=== PATIENT | male | born 1955 | race Caucasian/White ===

== ENCOUNTER 2024-04-06 13:28 | Observation (INO) ==
--- NOTE | 2024-04-06 14:17 | Emergency Department Note ---
Impression & Plan Dementia, Hyperglycemia, Leukocytosis, Unable to care for self ED Provider Note NAME: ZANDER FERRER AGE: 68 SEX: M : 1955 ARRIVES VIA: Walk-In INFORMANT: [family, friends] ED PROVIDER(S): [Sanya Woodard MD] CHIEF COMPLAINT: Confusion, needs placement HISTORY OF PRESENT ILLNESS: The patient is a 68-year-old male who has dementia. He has a history of diabetes and [place]. He wanders and needs 24/7 care. He is by report nonverbal. He was being cared for by his however, she yesterday. The patient is here today at the advice of the [facility] physician group as he will need hospitalized today for eventual alf placement. There is no placement available today. He is not safe to be by himself. Family is not able to care for him at the level required. The patient is not from the area. He is from the [facility]. He was brought today to [place] by his family as his most immediate family lives in this area. The patient has not been sick or ill, no cough or congestion. He has been in baseline health. He wanders but has never been aggressive/violent. PMHx/PSHx/Social Hx: See Below PHYSICAL EXAM: GENERAL: Patient is in no acute distress. HEENT: No acute trauma, normocephalic atraumatic, mucous membranes moist, no nasal congestion. NECK: No stridor, no adenopathy, no meningismus, trachea is midline. LUNGS: Clear to auscultation bilaterally, no wheeze, no rhonchi, breath sounds equal. HEART: Without murmurs gallops or rubs, regular rate and rhythm. ABDOMEN: Soft, nontender, no peritonitis. EXTREMITIES: No cyanosis, full range of motion of all the joints without pain or difficulty. NEUROLOGIC: Moves all extremities, ambulates without difficulty. Cooperative but seen to wander when left to sit alone. SKIN: No jaundice, no diaphoresis. DIFFERENTIAL DIAGNOSIS: Dehydration, dementia, electrolyte imbalance, intracranial bleeding, anemia, among others. EMERGENCY DEPARTMENT PROCEDURES: MEDICAL DECISION MAKING: There is a mild leukocytosis, this could be consistent with infection or just the stress of his current situation. There was a normal hemoglobin and platelet count. Sodium slightly low at 133. No renal failure. Initial glucose was reported at 357, a repeat was done here about an hour later showing a decrease to 284. There was no concerning liver enzyme elevation. The patient appeared to be in a euthyroid state. Aspirin, Tylenol and alcohol levels were undetectable. COVID test is currently pending. Urinalysis is pending. Urine tox is pending. A brain CT was ordered however, this result is pending. The patient was given a 500 cc saline bolus during his stay. He had been ordered for a dose of IV insulin however, when the BSG showed a value of 284, the insulin dose was canceled. The patient has stable vital signs. He is not febrile. He presents today with severe dementia and is need of alf placement. No beds are available today thus he will be hospitalized on the medicine service. We can trend his sugar, we can make sure he is hydrated. The remaining tests ordered can be performed during his hospital stay. I did speak with case management, I spoke with the family. The on-call hospitalist was consulted. Prior/Outside records/notes reviewed: None ECG per my interpretation: Indication was weakness. The ECG shows what appears to be a sinus rhythm with baseline artifact. The rate is 81. There is no acute ST elevation, no PVCs. There is some nonspecific ST change. QTc is 425. Imaging/x-ray results per my interpretation: Chronic Medical/Social conditions affecting care: History of severe dementia requiring 24/7 care. Care/Management discussed with: Case management, the on-call hospitalist. Level of care consideration(s): After review of the information above and other included data: --I believe the patient requires escalation of care to admission DISPOSITION: Admission Past Med/Surg History Problem List (Updated 04/06/24 @ 15:36 by Sanya Woodard MD) Leukocytosis (Acute) Hyperglycemia (Acute) Dementia (Acute) Unable to care for self (Acute) Medical History CAD (coronary artery disease) Vitamin D deficiency Pick's disease HTN (hypertension) T2DM (type 2 diabetes mellitus) Surgical History (Updated 04/06/24 @ 14:58 by Alexandra Bush PA-C) History of coronary artery stent placement Family History (Updated 04/06/24 @ 14:46 by ETELVINA AndersenC) Other Family history non-contributory Social History Smoking Status: Never smoker Hx Alcohol Use: No Hx Substance Use: No Preferred Language: [place]guill[place] Communication Ability: Impaired Communication Ability Comment: Pt nonverbal in setting of dementia marital status: / Feels Safe at Home: Yes Home Meds Home Medications Medication Instructions Recorded Confirmed aspirin 81 mg tablet,delayed 81 mg PO DAILY 04/06/24 04/06/24 release atorvastatin 40 mg tablet 40 mg PO HS 04/06/24 04/06/24 coenzyme Q10 100 mg capsule (Co 100 mg PO DAILY 04/06/24 04/06/24 Q-10) insulin glargine 100 unit/mL (3 15 unit subcut BID 04/06/24 04/06/24 mL) subcutaneous pen (Lantus Solostar U-100 Insulin) olmesartan 20 mg tablet 20 mg PO DAILY 04/06/24 04/06/24 omeprazole 40 mg capsule,delayed 40 mg PO DAILY 04/06/24 04/06/24 release risperidone 0.25 mg disintegrating 0.25 mg PO TID 04/06/24 04/06/24 tablet sitagliptin phosphate 100 mg 100 mg PO DAILY 04/06/24 04/06/24 tablet (Januvia) Results & Data (ED) Vital Signs Vital Signs - 24 hr 04/06/24 13:29 04/06/24 13:29 Temperature 36.6 C Temperature Source Temporal Artery Scan Pulse Rate 84 Respiratory Rate 18 18 Blood Pressure 124/68 Blood Pressure Mean 86 Pulse Oximetry 92 Sepsis Recent Fever Within 48 Hours No Sepsis New/Unexplained Change in Mental Status N/A Sepsis Action Taken by Nursing No Action Required Home Medications Current Medication List: was personally reviewed by me Laboratory Data Attestation: I reviewed the patient's lab results. 04/06/24 14:39 04/06/24 14:39 Lab Results 04/06/24 04/06/24 Range/Units 14:39 15:25 WBC 12.03 H (4.8-10.8) K/ul RBC 5.33 (4.70-6.10) M/uL Hgb 16.6 (14.0-18.0) g/dl Hct 49.3 (42.0-52.0) % MCV 92.5 (80.0-100.0) fL MCH 31.1 (25.0-34.0) pg MCHC 33.7 (32.0-36.0) g/dL RDW Std Deviation 41.0 (36.4-46.3) fL RDW Coeff of Tommy 12.1 (11.5-14.5) % Plt Count 273 (130-400) K/uL MPV 10.1 (9.4-12.4) fL Immature Gran % (Auto) 0.4 % Neut % (Auto) 67.8 % Lymph % (Auto) 18.4 % Hernando % (Auto) 9.6 % Eos % (Auto) 3.2 % Baso % (Auto) 0.6 % Neut # (Auto) 8.17 H (1.40-6.50) K/uL Lymph # (Auto) 2.21 (1.20-3.40) K/uL Hernando # (Auto) 1.15 H (0.11-0.59) K/uL Eos # (Auto) 0.38 (0.00-0.50) K/uL Baso # (Auto) 0.07 (0.00-0.20) K/uL Immature Gran # (Auto) 0.05 (0.01-0.20) K/uL Sodium 133 L (136-145) mmol/L Potassium 4.3 (3.5-5.1) mmol/L Chloride 99 (98-107) mmol/L Carbon Dioxide 28 (21-32) mmol/L Anion Gap 6 (3-11) BUN 9 (6-23) mg/dl Creatinine 0.70 (0.6-1.4) mg/dl Est Cr Clr Drug Dosing 102.3 ml/min Est GFR ( Amer) 111.6 ml/min Est GFR (Non-Af Amer) 96.3 ml/min BUN/Creatinine Ratio 12.9 (10-20) Glucose 357 H* (70-99(Fasting)) mg/dl POC Glucose 284 H (70-99) mg/dl Calcium 9.2 (8.6-10.3) mg/dl Total Bilirubin 1.0 (0.2-1.0) mg/dl AST 16 (13-39) U/L ALT 21 (7-52) U/L Alkaline Phosphatase 81 (34-104) U/L Total Protein 7.5 (6.0-8.3) gm/dl Albumin 4.2 (3.4-5.0) gm/dl Globulin 3.3 (2.5-4.0) gm/dl Albumin/Globulin Ratio 1.3 (0.9-2) TSH 1.090 (0.300-4.500) uIu/ml Salicylates < 3.0 L (3.0-30) mg/dl Acetaminophen < 3 L (10-30) ug/ml Ethyl Alcohol mg/dL < 10.0 (<10.0) mg/dl Administered Medications Discontinued Medications Sodium Chloride (Nss) 500 mls @ 999 mls/hr IV .Q31M ELOINA Stop: 04/06/24 14:30 Last Admin: 04/06/24 15:02 Dose: 999 mls/hr Documented By: TANNER Discharge Plan Visit Data Chief Complaint: Illness Stated Complaint: REFERRED TO DR WOODARD - PLACEMENT FOR RESPITE ED Provider: Sanya Woodard Discharge Problem: Dementia, Hyperglycemia, Leukocytosis, Unable to care for self Patient Disposition: Admitted As Inpatient Condition: Fair Forms Stand Alone Forms: My [facility] Prescriptions Prescriptions: No Action Januvia 100 mg Tablet 100 mg PO DAILY insulin glargine [Lantus Solostar U-100 Insulin] 100 unit/mL (3 mL) Insulin Pen 15 unit SUBCUT BID risperidone 0.25 mg Tablet,Disintegrating 0.25 mg PO TID atorvastatin 40 mg Tablet 40 mg PO HS olmesartan 20 mg Tablet 20 mg PO DAILY aspirin [Aspir-81] 81 mg Tablet,Delayed Release (Dr/Ec) 81 mg PO DAILY omeprazole 40 mg Capsule,Delayed Release(Dr/Ec) 40 mg PO DAILY coenzyme Q10 [Co Q-10] 100 mg Capsule 100 mg PO DAILY Referrals Referrals: PCP,NO [Physician] - Discharge Problem: Dementia Qualifiers: Dementia type: Pick's disease Dementia severity: severe Dementia behavioral or psychological symptom: with other behavioral disturbance Qualified Code(s): G 31.01 - Pick's disease Leukocytosis Qualifiers: Leukocytosis type: unspecified Qualified Code(s): D72.829 - Elevated white blood cell count, unspecified
[2024-04-06 14:51] LABS: Basophils # (auto) 0.07 K/uL (0.00-0.20); Basophils % (auto) 0.6 %; Eosinophils # (auto) 0.38 K/uL (0.00-0.50); Eosinophils % (auto) 3.2 %; Hematocrit (blood only) 49.3 % (42.0-52.0); Hemoglobin 16.6 g/dl (14.0-18.0); Immature Granulocytes # (auto) 0.05 K/uL (0.01-0.20); Immature Granulocytes % (auto) 0.4 %; Lymphocytes # (auto) 2.21 K/uL (1.20-3.40); Lymphocytes % (auto) 18.4 %; Mean Corpuscular Hemoglobin 31.1 pg (25.0-34.0); Mean Corpuscular Hgb Conc 33.7 g/dL (32.0-36.0); Mean Corpuscular Volume 92.5 fL (80.0-100.0); Mean Platelet Volume 10.1 fL (9.4-12.4); Monocytes # (auto) 1.15 K/uL (0.11-0.59); Monocytes % (auto) 9.6 %; Neutrophils # (auto) 8.17 K/uL (1.40-6.50); Neutrophils % (auto) 67.8 %; Platelet Count 273 K/uL (130-400); RDW Coefficient of Variation 12.1 % (11.5-14.5); Red Blood Count 5.33 M/uL (4.70-6.10); White Blood Count 12.03 K/ul (4.8-10.8)
[2024-04-06] MEDS: SODIUM CHLORIDE 0.9% 500 ML IV SCH (15:02)
--- NOTE | 2024-04-06 15:06 | History & Physical Report ---
Date of Service April 06, 2024 Assessment & Plan (1) Pick's disease: (2) T2DM (type 2 diabetes mellitus): (3) HTN (hypertension): (4) Unable to care for self: Plan This is a 68 yr old M who has a significant PMH of Picks disease and advanced dementia dx in 2009 now nonverbal for last 3 years, Uncontrolled T2DM, HTN, HLD and vitamin d deficiency who presents to ED due to need for fpc placement. Pt formally of [facility]. Was residing with his who was his main bunk house worker for many years. Pts abruptly on 04/05. His Son in law and Daughter live in [place], [place] and he is being admitted for chcf placement as family unable to care for him at home. Picks Disease and advanced dementia, dx 2009, nonverbal for last 3 years Unable to care for self at home - needs extermination supervisor placement admit to med/surg one to one as pt very mobile, flight risk routine lab worked ordered and obtained in ED, CT head T2DM, uncontrolled a1c in october was 9.5 lantus/novolg per protocol consult glycemic pharmacy for assistance with control Goal a1c ~ 8 HTN: chronic, stable, continue ARB HLD: chronic, stable, continue statin, coq10 - last lipid panel in October total chol 113, HDL 35, trig 141, LDL 56 CAD/Hx of [place] - continue ARB, statin, ASA DVT ppx: Pt ambulatory, encourage ambulation, given advance dementia chemical ppx not indicated DNR/DNI PCP: Anamaria Ewing - [facility] - records were reviewed, he will need to establish with provider in area Dispo: pt to need dementia unit placement, flight risk - recommend to limit medical interventions as much as possible as pt will be noncompliant i.e.pulling of IVs, injections, etc Pt was seen and examined in collaboration with Dr. Lewis, please see addendum A total of 60 minutes was spent coordinating, documenting, and providing care for this patient excluding time spent in the performance of separately billed services. This included personally viewing all current laboratories and imaging studies, medication reconciliation, outpatient chart review, and discussion with specialists. History of Present Illness Chief Complaint: Here for dementia unit placement Primary Care Provider: PENNY Corrales This is a 68 yr old M who has a significant PMH of Picks disease and advanced dementia dx in 2009 now nonverbal for last 3 years, Uncontrolled T2DM, HTN, HLD and vitamin d deficiency who presents to ED due to need for fpc placement. Pt unable to elicit hx given end stage dementia. Pt son in law, daughter and family friend Vinita is at bedside. They provide history for patient. Pt resides in [place], [place]. His family lives here in [place]. Unfortunately, patients yesterday unexpectedly. She was his main bunk house worker. Due to pt requiring full care they were in the process of trying to get him into a nursing facility in the area; however this has not yet been obtained. Due to the abrupt passing of his bunk house worker they decided to bring him to a local emergency room for admission and placement. He is unable to be cared for at home. Family states that he is very ambulatory, but non verbal. He has been having issues with urinary incontinence of late. He does not recognize his close family members. Family denies any recent illness/viral illness with the patient. He has otherwise been in his normal state of health. He had caretakers at home who report his blood sugars have been elevated. Home Medications Medication Instructions Recorded Confirmed Type aspirin 81 mg tablet,delayed 81 mg PO DAILY 04/06/24 04/06/24 History release atorvastatin 40 mg tablet 40 mg PO HS 04/06/24 04/06/24 History coenzyme Q10 100 mg capsule (Co 100 mg PO DAILY 04/06/24 04/06/24 History Q-10) insulin glargine 100 unit/mL (3 15 unit subcut BID 04/06/24 04/06/24 History mL) subcutaneous pen (Lantus Solostar U-100 Insulin) olmesartan 20 mg tablet 20 mg PO DAILY 04/06/24 04/06/24 History omeprazole 40 mg capsule,delayed 40 mg PO DAILY 04/06/24 04/06/24 History release risperidone 0.25 mg disintegrating 0.25 mg PO TID 04/06/24 04/06/24 History tablet sitagliptin phosphate 100 mg 100 mg PO DAILY 04/06/24 04/06/24 History tablet (Januvia) Past Med/Surg History Problem List (Updated 04/06/24 @ 14:58 by Alexandra Bush PA-C) Unable to care for self Medical History (Updated 04/06/24 @ 14:58 by Alexandra Bush PA-C) CAD (coronary artery disease) Vitamin D deficiency Pick's disease HTN (hypertension) T2DM (type 2 diabetes mellitus) Surgical History (Updated 04/06/24 @ 14:58 by Alexandra Bush PA-C) History of coronary artery stent placement Family History (Updated 04/06/24 @ 14:46 by Alexandra Bush PA-C) Other Family history non-contributory Social History (Updated 04/06/24 @ 14:46 by Alexandra Bush PA-C) Smoking Status: Never smoker Hx Alcohol Use: No Hx Substance Use: No Preferred Language: Welsh Communication Ability: Impaired Communication Ability Comment: Pt nonverbal in setting of dementia marital status: / Feels Safe at Home: Yes Review of Systems Review of Systems: Unobtainable due to cognitive status Physical Exam Physical Exam: please refer to Dr. Lewis addendum for physical exam findings Results & Data Results & Data Vital Signs (Past 12 Hours) Vital Signs Temp Pulse Resp BP Pulse Ox 04/06/24 13:29 18 04/06/24 13:29 36.6 C 84 18 124/68 92 Laboratory Results I have independently reviewed and interpreted patient's admitting labs including CBC, CMP, vit d, tsh, Medications Administered Home Medications Medication Instructions Recorded Confirmed atorvastatin 40 mg tablet 40 mg PO HS 04/06/24 04/06/24 insulin glargine 100 unit/mL (3 15 unit subcut BID 04/06/24 04/06/24 mL) subcutaneous pen (Lantus Solostar U-100 Insulin) olmesartan 20 mg tablet 20 mg PO DAILY 04/06/24 04/06/24 risperidone 0.25 mg disintegrating 0.25 mg PO TID 04/06/24 04/06/24 tablet sitagliptin phosphate 100 mg 100 mg PO DAILY 04/06/24 04/06/24 tablet (Januvia) ECG Additional Comments: I have independently reviewed and interpreted patient's admitting EKG which revealed: nsr, 81 bpm, qtc 425ms Code Status & VTE Plan Code Status DNR/DNI VTE Prophylaxis Plan VTE Prophylaxis will be ordered: No Reason for no VTE drug order: Treatment not tolerated Supervising Physician Co-Signing Physician Notes 68 yo M w/ FTD (picks dementia) diagnosed 2009, progressive aphasia (from 2013, complete aphasic since about 3 years ago), T2DM, HTN, HLD was brought in to ED for placement issues given recent family circumstances. Pt's Dtr and LUIS at bedside. Pt's who was the primary gericare aide yesterday and patient was moved from [place] to here in [place] as the closest relatives were here and given pt's condition, family can't provide him 24/7 care and hence he was brought in for placement. Pt didn't have any recent febrile episodes or fall. Pt ambulates independently. pt is non verbal and doesn't recognize family members/can't follow commands. Per family, pt has recently started w/ bowel and bladder incontinence. On exam: GENERAL: Alert and awake, standing at exam time. NAD, on RA. can't follow commands. HEENT: No pallor, no icterus. Pupils equal, round and reactive to light. Oral mucosa moist. NECK: No JVD, no neck masses. HEART: S1 and S2 heard. Regular rate and rhythm. No murmur, no gallop. RESPIRATORY SYSTEM: Normal AP diameter. No accessory muscle use. No wheezing, no crackles. ABDOMEN: Soft, bowel sounds present, nontender, no distention. CENTRAL NERVOUS SYSTEM: No facial droop. Non verbal. Moves extremities. EXTREMITIES: No edema, no erythema seen. Will await labs and CT Head ordered at ED. A1c, glycemic pharmacy for DM Mx. Will need 1 to 1. PT/OT, CM consult for placement. I have seen and examined the patient and have discussed the case with the provider above. I agree with the assessment and plan as stated.
[2024-04-06 15:13] LABS: Acetaminophen < 3 ug/ml (10-30); Albumin Level 4.2 gm/dl (3.4-5.0); BUN Creatinine Ratio 12.9 (10-20); Calcium 9.2 mg/dl (8.6-10.3); Creatinine Clr Calc Pharmacy 102.3 ml/min; Est GFR (African American) 111.6 ml/min; Est GFR (Non-African American) 96.3 ml/min; Potassium 4.3 mmol/L (3.5-5.1); Salicylate < 3.0 mg/dl (3.0-30)
[2024-04-06 15:19] LABS: Albumin Globulin Ratio 1.3 (0.9-2); Globulin 3.3 gm/dl (2.5-4.0); Total Protein 7.5 gm/dl (6.0-8.3)
[2024-04-06 15:29] LABS: Thyroid Stimulating Hormone 1.09 uIu/ml (0.300-4.500)
[2024-04-06] MEDS: NovoLIN-R INSULIN PER UNIT CHARGE IV STA (15:37)
[2024-04-06] MEDS ORDERED: GLUCOSE 10 TAB/TUBE PO PRN (17:45)
[2024-04-06] MEDS ORDERED: POLYETHYLENE (MIRALAX) 17 GM PACK PO PRN (17:45)
[2024-04-06] MEDS ORDERED: GLUCOSE 40% GEL 15 GM TUBE PO PRN (17:45)
[2024-04-06] MEDS ORDERED: MAGNESIUM HYDROXIDE SUSP 30 ML UDC PO PRN (17:45)
[2024-04-06] MEDS ORDERED: CARBOHYDRATES FOR HYPOGLYCEMIA PO PRN (17:45)
[2024-04-06] MEDS ORDERED: PHARMACY GLYCEMIC MGMT CONSULT PRN (17:45)
[2024-04-06] MEDS ORDERED: GLUCAGON FOR INJ 1 MG VIAL SQ PRN (17:45)
[2024-04-06] MEDS ORDERED: DEXTROSE 50% 50 ML SYRINGE IV PRN (17:45)
[2024-04-06] MEDS ORDERED: ONDANSETRON INJ 2 MG/ML 2 ML VIAL IV PRN (17:45)
[2024-04-06] MEDS ORDERED: ACETAMINOPHEN 325 MG TAB PO PRN (17:45)
[2024-04-06] MEDS: INSULIN ASPART PER UNIT CHARGE SC SCH (18:37)
[2024-04-06] MEDS: risperiDONE ODT 0.5 MG SOLTAB PO SCH (20:28)
[2024-04-06] MEDS: MELATONIN 3 MG TAB PO PRN (20:28)
[2024-04-06] MEDS: ATORVASTATIN 40 MG TAB PO SCH (20:28)
[2024-04-06] MEDS: LANTUS PER UNIT CHARGE SC SCH (20:34)
[2024-04-06] MEDS ORDERED: LANTUS PER UNIT CHARGE SQ SCH (21:00)
[2024-04-06 21:16] LABS: Appearance Urine Clear (Clear); Bacteria Urine Automated None Seen (None Seen); Bilirubin Urine Negative (Negative); Blood Urine Negative (Negative); Cast Urine Automated 0-2 /lpf (0-2); Color Urine Yellow; Epithelial Cell Urine Auto 0-2 /hpf (0-2); Glucose Urine UA 3+ (Negative); Ketones Urine Negative (Negative); Leukocyte Esterase Urine 1+ (Negative); Nitrite Urine Negative (Negative); Protein Urine Negative (Negative); RBC Urine Automated 0-2 /hpf (0-2); Specific Gravity Urine 1.016 (1.000-1.030); Urobilinogen Urine Negative (Negative); WBC Urine Automated 0-5 /hpf (0-5)
[2024-04-06 21:49] LABS: Amphetamines+Metham, Urine Neg (Neg); Barbiturates, Urine Neg (Neg); Benzodiazepine, Urine Neg (Neg); Cocaine, Urine Neg (Neg); Fentanyl, Urine Neg (Neg); MDMA (Ecstacy), Urine Neg (Neg); Marijuana, Urine Neg (Neg); Methadone, Urine Neg (Neg); Opiate, Urine Neg (Neg); Phencyclidine, Urine Neg (Neg)
[2024-04-07] MEDS: LOSARTAN POTASSIUM 25 MG TAB PO SCH (08:45)
[2024-04-07 08:55] LABS: Estimated Average Glucose 223 mg/dl; Hemoglobin A1C 9.4 % (4.5-5.6)
[2024-04-07 09:06] LABS: Albumin Globulin Ratio 1.3 (0.9-2); Albumin Level 3.8 gm/dl (3.4-5.0); BUN Creatinine Ratio 15.6 (10-20); Calcium 8.9 mg/dl (8.6-10.3); Creatinine Clr Calc Pharmacy 112.2 ml/min; Est GFR (African American) 115.8 ml/min; Est GFR (Non-African American) 99.9 ml/min; Globulin 2.9 gm/dl (2.5-4.0); Potassium 3.7 mmol/L (3.5-5.1); Total Protein 6.7 gm/dl (6.0-8.3)
--- NOTE | 2024-04-07 09:16 | Electrocardiogram Report ---
Test Reason : Blood Pressure : */* mmHG Vent. Rate : 81 BPM Atrial Rate : * BPM P-R Int : * ms QRS Dur : 84 ms QT Int : 366 ms P-R-T Axes : * -9 16 degrees QTcB Int : 425 ms Poor data quality, interpretation may be adversely affected Sinus rhythm Normal ECG Abnormal ECG No previous ECGs available Confirmed by Rl Jeffery ([id number]) on 04/07/2024 9:16:22 AM Referred By: Confirmed By: Rl Jeffery
--- NOTE | 2024-04-07 10:24 | Pharmacy Report ---
Pharmacy Glycemic Short Note 2 - Date of Service April 07, 2024 - Glycemic Short BSG Results (Last 24 hours): 04/06/24 04/06/24 04/06/24 14:39 15:25 17:41 Glucose 357 H* POC Glucose 284 H 234 H 04/06/24 04/07/24 04/07/24 20:28 07:45 08:22 Glucose 169 H POC Glucose 185 H 129 H OUTPATIENT ANTIDIABETIC REGIMEN: * Lantus 15 units SQ BID * Januvia 100 mg once daily * A1C: 9.4 % (04/07/2024) ASSESSMENT: * Patient is a 68 year old male who was admitted for inability to care for self and dementia with as history of T2DM. Pharmacy was consulted to assist with glycemic management while inpatient. * Patient has been receiving Lantus 10 units BID (reduction from home dose by 33%) * Patient has been receiving Novolog ACHS with a correction factor of 25 mg/dL/unit and an insulin to CHO ratio of 1 unit/ 8 g CHO PLAN FOR INPATIENT GLYCEMIC CONTROL: * Hold outpatient oral diabetes medications * Basal insulin * Lantus 10 units SQ BID * Bolus insulin * NovoLog per scale ACHS or Q6hrs while NPO * Goal Range: Low 110 mg/dL - High 140 mg/dL * Correction Factor: 25 mg/dL/unit * Nutritional / Prandial insulin per carb ratio of 1 unit per 8 grams CHO consumed
--- NOTE | 2024-04-07 11:27 | Hospitalist Progress Note ---
Date of Service April 07, 2024 Assessment & Plan (1) Pick's disease: (2) T2DM (type 2 diabetes mellitus): (3) HTN (hypertension): (4) Unable to care for self: Plan This is a 68 yr old M who has a significant PMH of Picks disease and advanced dementia dx in 2009 now nonverbal for last 3 years, Uncontrolled T2DM, HTN, HLD and vitamin d deficiency who presented to ED due to need for prison placement. Pt formally of [facility]. Was residing with his who was his main floor clerk for many years. Pts abruptly on 04/05. His Son in law and Daughter live in [place], [place] and he is being admitted for extermination inspector placement as family unable to care for him at home. Picks Disease and advanced dementia Unable to care for self at home Dx in 2009, nonverbal for last 3 years Needs extermination inspector placement One to one as pt very mobile, flight risk Head CT ordered in ED but unable to complete as patient will not lay still for exam. No focal motor deficit, patient seems to be at his baseline mental status. Will d/c head CT for now. T2DM, uncontrolled Hgb a1c 9.4 On Januvia and Lantus 15u BID CONTROL ROOM TENDER Lantus/novolog per protocol consult glycemic pharmacy for assistance with control Goal a1c ~ 8 Vit D Deficiency VIt D Level 15.6 Replacement started HTN Chronic, stable Continue CONTROL ROOM TENDER ARB HLD Chronic, stable Continue statin, coq10 Last lipid panel in October total chol 113, HDL 35, trig 141, LDL 56 CAD/Hx of [place] Continue ARB, statin, ASA DVT ppx Pt ambulatory, given advance dementia chemical ppx not indicated DNR/DNI PCP: Anamaria Ewing - [facility] - records were reviewed, he will need to establish with provider in area Dispo: Needs placement, CM following Admission and Anticipated Discharge Date Admission Date: April 06, 2024 Subjective Follow-up for Pick's disease, inability to care for self at home. Patient seen and examined. Has sitter at bedside. Patient is pleasant and cooperative. Nonverbal at baseline, only waves "Hi". Has been ambulating in the halls with sitter. Physical Exam Constitutional: WD/WN, vitals as above no acute distress Respiratory: normal respiratory effort, lungs clear to auscultation Cardiovascular: Rate/Rhythm: regular rate and regular rhythm Extremities: no edema Skin: no rashes, warm and dry Psychiatric: Orientation: alert non verbal at baseline, no focal motor deficit noted Results & Data Results & Data Vital Signs (Past 12 Hours) Vital Signs Temp Pulse Resp BP Pulse Ox O2 Del Method 04/07/24 07:04 36.4 C L 62 18 150/78 H 96 Room Air Laboratory Results Short CBC 04/06/24 Range/Units 14:39 WBC 12.03 H (4.8-10.8) K/ul Hgb 16.6 (14.0-18.0) g/dl Hct 49.3 (42.0-52.0) % Plt Count 273 (130-400) K/uL BMP 04/06/24 04/07/24 14:39 08:22 Sodium 133 L 137 Potassium 4.3 3.7 Chloride 99 101 Carbon Dioxide 28 32 BUN 9 10 Creatinine 0.70 0.64 Glucose 357 H* 169 H Calcium 9.2 8.9 Liver Function 04/06/24 04/07/24 Range/Units 14:39 08:22 Total Bilirubin 1.0 1.0 (0.2-1.0) mg/dl AST 16 18 (13-39) U/L ALT 21 24 (7-52) U/L Alkaline Phosphatase 81 73 (34-104) U/L Albumin 4.2 3.8 (3.4-5.0) gm/dl Urine 04/06/24 Range/Units 21:00 Urine Color Yellow Urine Appearance Clear (Clear) Urine pH 7.0 (4.5-7.5) Ur Specific [place] 1.016 (1.000-1.030) Urine Protein Negative (Negative) Urine Glucose (UA) 3+ H (Negative)
[2024-04-07] MEDS: ERGOCALCIFEROL 1250 MCG (50,000 UNITS) CAP PO SCH (12:44)
[2024-04-08 08:35] VITALS: BP 122/66; PULSE 78; RESP 16; TEMP 97.3; O2SAT 92
--- NOTE | 2024-04-08 11:54 | Discharge Summary ---
Date of Service April 08, 2024 Admission HPI Per Admitting Provider This is a 68 yr old M who has a significant PMH of Picks disease and advanced dementia dx in 2009 now nonverbal for last 3 years, Uncontrolled T2DM, HTN, HLD and vitamin d deficiency who presents to ED due to need for skilled nursing placement. Pt unable to elicit hx given end stage dementia. Pt son in law, daughter and family friend Vinita is at bedside. They provide history for patient. Pt resides in [place], [place]. His family lives here in [place]. Unfortunately, patients yesterday unexpectedly. She was his main medical dermatologist. Due to pt requiring full care they were in the process of trying to get him into a nursing facility in the area; however this has not yet been obtained. Due to the abrupt passing of his medical dermatologist they decided to bring him to a local emergency room for admission and placement. He is unable to be cared for at home. Family states that he is very ambulatory, but non verbal. He has been having issues with urinary incontinence of late. He does not recognize his close family members. Family denies any recent illness/viral illness with the patient. He has otherwise been in his normal state of health. He had caretakers at home who report his blood sugars have been elevated. Admission Exam Per Admitting Provider GENERAL: Alert and awake, standing at exam time. NAD, on RA. can't follow com mands. HEENT: No pallor, no icterus. Pupils equal, round and reactive to light. Oral mucosa moist. NECK: No JVD, no neck masses. HEART: S1 and S2 heard. Regular rate and rhythm. No murmur, no gallop. RESPIRATORY SYSTEM: Normal AP diameter. No accessory muscle use. No wheezing, no crackles. ABDOMEN: Soft, bowel sounds present, nontender, no distention. CENTRAL NERVOUS SYSTEM: No facial droop. Non verbal. Moves extremities. EXTREMITIES: No edema, no erythema seen. Principal Diagnosis Pick's Disease Discharge Exam Constitutional WD/WN, vitals as above no acute distress currently resting in bed, opens eyes to verbal stimuli, waves "Hi" Respiratory normal respiratory effort, lungs clear to auscultation Cardiovascular Rate/Rhythm: regular rate and regular rhythm Extremities: no edema Skin no rashes, warm and dry Neurologic no focal motor deficits Psychiatric Orientation: alert non verbal at baseline, waves "Hi", ambulates without difficulty or assistive device Discharge Data Ordered Studies Laboratory Results WBC 12.03 K/ul (4.8-10.8) H 04/06/24 14:39 RBC 5.33 M/uL (4.70-6.10) 04/06/24 14:39 Hgb 16.6 g/dl (14.0-18.0) 04/06/24 14:39 Hct 49.3 % (42.0-52.0) 04/06/24 14:39 MCV 92.5 fL (80.0-100.0) 04/06/24 14:39 MCH 31.1 pg (25.0-34.0) 04/06/24 14:39 MCHC 33.7 g/dL (32.0-36.0) 04/06/24 14:39 RDW Std Deviation 41.0 fL (36.4-46.3) 04/06/24 14:39 RDW Coeff of Tommy 12.1 % (11.5-14.5) 04/06/24 14:39 Plt Count 273 K/uL (130-400) 04/06/24 14:39 MPV 10.1 fL (9.4-12.4) 04/06/24 14:39 Immature Gran % (Auto) 0.4 % 04/06/24 14:39 Neut % (Auto) 67.8 % 04/06/24 14:39 Lymph % (Auto) 18.4 % 04/06/24 14:39 [place] % (Auto) 9.6 % 04/06/24 14:39 Eos % (Auto) 3.2 % 04/06/24 14:39 Baso % (Auto) 0.6 % 04/06/24 14:39 Neut # (Auto) 8.17 K/uL (1.40-6.50) H 04/06/24 14:39 Lymph # (Auto) 2.21 K/uL (1.20-3.40) 04/06/24 14:39 [place] # (Auto) 1.15 K/uL (0.11-0.59) H 04/06/24 14:39 Eos # (Auto) 0.38 K/uL (0.00-0.50) 04/06/24 14:39 Baso # (Auto) 0.07 K/uL (0.00-0.20) 04/06/24 14:39 Immature Gran # (Auto) 0.05 K/uL (0.01-0.20) 04/06/24 14:39 Sodium 137 mmol/L (136-145) 04/07/24 08:22 Potassium 3.7 mmol/L (3.5-5.1) 04/07/24 08:22 Chloride 101 mmol/L (98-107) 04/07/24 08:22 Carbon Dioxide 32 mmol/L (21-32) 04/07/24 08:22 Anion Gap 4 (3-11) 04/07/24 08:22 BUN 10 mg/dl (6-23) 04/07/24 08:22 Creatinine 0.64 mg/dl (0.6-1.4) 04/07/24 08:22 Est Cr Clr Drug Dosing 112.2 ml/min 04/07/24 08:22 Est GFR ( Amer) 115.8 ml/min 04/07/24 08:22 Est GFR (Non-Af Amer) 99.9 ml/min 04/07/24 08:22 BUN/Creatinine Ratio 15.6 (10-20) 04/07/24 08:22 Glucose 169 mg/dl (70-99(Fasting)) H 04/07/24 08:22 POC Glucose 137 mg/dl (70-99) H 04/08/24 08:20 Estimat Average Glucose 223 mg/dl 04/07/24 08:22 Hemoglobin A1c 9.4 % (4.5-5.6) H 04/07/24 08:22 Calcium 8.9 mg/dl (8.6-10.3) 04/07/24 08:22 Total Bilirubin 1.0 mg/dl (0.2-1.0) 04/07/24 08:22 AST 18 U/L (13-39) 04/07/24 08:22 ALT 24 U/L (7-52) 04/07/24 08:22 Alkaline Phosphatase 73 U/L (34-104) 04/07/24 08:22 Total Protein 6.7 gm/dl (6.0-8.3) 04/07/24 08:22 Albumin 3.8 gm/dl (3.4-5.0) 04/07/24 08:22 Globulin 2.9 gm/dl (2.5-4.0) 04/07/24 08:22 Albumin/Globulin Ratio 1.3 (0.9-2) 04/07/24 08:22 25-OH Vitamin D Total 15.6 ng/ml (30-100) L 04/06/24 14:40 TSH 1.090 uIu/ml (0.300-4.500) 04/06/24 14:39 Urine Color Yellow 04/06/24 21:00 Urine Appearance Clear (Clear) 04/06/24 21:00 Urine pH 7.0 (4.5-7.5) 04/06/24 21:00 Ur Specific [place] 1.016 (1.000-1.030) 04/06/24 21:00 Urine Protein Negative (Negative) 04/06/24 21:00 Urine Glucose (UA) 3+ (Negative) H 04/06/24 21:00 Urine Ketones Negative (Negative) 04/06/24 21:00 Urine Blood Negative (Negative) 04/06/24 21:00 Urine Nitrite Negative (Negative) 04/06/24 21:00 Urine Bilirubin Negative (Negative) 04/06/24 21:00 Urine Urobilinogen Negative (Negative) 04/06/24 21:00 Ur Leukocyte Esterase 1+ (Negative) H 04/06/24 21:00 Urine WBC (Auto) 0-5 /hpf (0-5) 04/06/24 21:00 Urine RBC (Auto) 0-2 /hpf (0-2) 04/06/24 21:00 U Hyaline Cast (Auto) 0-2 /lpf (0-2) 04/06/24 21:00 U Epithel Cells (Auto) 0-2 /hpf (0-2) 04/06/24 21:00 Urine Bacteria (Auto) None Seen (None Seen) 04/06/24 21:00 Salicylates < 3.0 mg/dl (3.0-30) L 04/06/24 14:39 Urine Opiates Screen Neg (Neg) 04/06/24 21:00 Ur Methadone, Qual Neg (Neg) 04/06/24 21:00 Urine Fentanyl Screen Neg (Neg) 04/06/24 21:00 Acetaminophen < 3 ug/ml (10-30) L 04/06/24 14:39 Urine Barbiturates Neg (Neg) 04/06/24 21:00 Ur Phencyclidine (PCP) Neg (Neg) 04/06/24 21:00 U Amphetamin/Meth Scrn Neg (Neg) 04/06/24 21:00 MDMA (Ecstasy) Screen Neg (Neg) 04/06/24 21:00 U Benzodiazepines Scrn Neg (Neg) 04/06/24 21:00 Ur Cocaine Metabolite Neg (Neg) 04/06/24 21:00 U Marijuana (THC) Screen Neg (Neg) 04/06/24 21:00 Ethyl Alcohol mg/dL < 10.0 mg/dl (<10.0) 04/06/24 14:39 SARS-CoV-2, RNA, NAAT NEGATIVE (NEGATIVE) 04/06/24 15:03 Hospital Course (1) Pick's disease: (2) T2DM (type 2 diabetes mellitus): (3) HTN (hypertension): (4) Unable to care for self: Plan This is a 68 yr old M who has a significant PMH of Picks disease and advanced dementia dx in 2009 now nonverbal for last 3 years, Uncontrolled T2DM, HTN, HLD and vitamin d deficiency who presented to ED due to need for skilled nursing placement. Pt formally of [facility]. Was residing with his who was his main medical dermatologist for many years. Pts abruptly on 04/05. His Son in law and Daughter live in [place], [place] and he is being admitted for superintendent container terminal placement as family unable to care for him at home. Picks Disease and advanced dementia Unable to care for self at home Dx in 2009, nonverbal for last 3 years. Waves "Hi", ambulates without difficulty and without assistive device. patient not aggressive or agitated, did not requi re sedation throughout hospitalization. Needs superintendent container terminal placement One to one as pt very mobile, flight risk Head CT ordered in ED but unable to complete as patient will not lay still for exam. No focal motor deficit, patient seems to be at his baseline mental status. Will d/c head CT for now. T2DM, uncontrolled Hgb a1c 9.4 On Januvia and Lantus 15u BID MANAGER FLORAL Lantus/novolog per protocol Consulted glycemic pharmacy for assistance with control Resume MANAGER FLORAL regimen at discharge Vit D Deficiency VIt D Level 15.6 Weekly replacement started - received first dose on 04/07, recommend weekly replacement for an additional 5 weeks HTN Chronic, stable Continue MANAGER FLORAL ARB HLD Chronic, stable Continue statin, coq10 Last lipid panel in October total chol 113, HDL 35, trig 141, LDL 56 CAD/Hx of ID Continue ARB, statin, ASA Total Time Total Time Spent Total Time Spent (In Minutes): 35 Discharge Plan Discharge Items Patient Disposition: Transfer [facility] Fac Reason For Visit: Inability to care for self Discharge Diagnosis: Pick's disease Unable to care for self Condition on Discharge: Good Activity: Resume your previous activity Non-emergency contact: Primary Care Provider Call non-emergency contact if: you have any medication questions, your symptoms worsen, your pain is not controlled and you have a fever Follow-up/Referrals: Josse Escobar MD [Primary Care Provider] - Diet: Carb Consistent or DM2 Addtl Attending Provider Instructions: This is a 68 yr old M who has a significant PMH of Picks disease and advanced dementia dx in 2009 now nonverbal for last 3 years, Uncontrolled T2DM, HTN, HLD and vitamin d deficiency who presented to ED due to need for skilled nursing placement. Pt formally of [place]. Was residing with his who was his main medical dermatologist for many years. Pts abruptly on 04/05. His Son in law and Daughter live in [place], [place] and he is being admitted for halfway placement as family unable to care for him at home. Patient was found to have vitamin D deficiency with vitamin D level 15.6. He was started on weekly vitamin D replacement and received first dose on 04/07. Recommend weekly dosing for an additional 5 weeks. Patient had an uneventful hospital stay. Patient is very mobile and flight risk, he did require a one-to-one observation throughout his stay. He was not agitated or aggressive and did not require any sedation. Pending Studies at Discharge: No Stand-Alone Forms: My [facility] [employer] Skilled Items Patient informed of condition?: Yes DNR: Yes Discharge Level of Care: Skilled Communicable Disease: No Discharge Prognosis: Stable Lines: None Urinary Catheter: No Medications and DC Order Prescriptions: New ergocalciferol (vitamin D2) 1,250 mcg (50,000 unit) Capsule 1,250 mcg PO Q7D 0 Days Qty: 5 0RF Continued Januvia 100 mg Tablet 100 mg PO DAILY insulin glargine [Lantus Solostar U-100 Insulin] 100 unit/mL (3 mL) Insulin Pen 15 unit SUBCUT BID risperidone 0.25 mg Tablet,Disintegrating 0.25 mg PO TID atorvastatin 40 mg Tablet 40 mg PO HS olmesartan 20 mg Tablet 20 mg PO DAILY aspirin 81 mg Tablet,Delayed Release (Dr/Ec) 81 mg PO DAILY omeprazole 40 mg Capsule,Delayed Release(Dr/Ec) 40 mg PO DAILY coenzyme Q10 [Co Q-10] 100 mg Capsule 100 mg PO DAILY Discharge Orders: Discharge Order (Routine); Ordered 04/08/24 Ordered By: Rosalba Solomon/Other Patient Handouts: Anatomy of the Brain Admission Data Admit Date/Time: 04/06/24 14:35 Attending Provider: Jose Miguel Hodgson Admit Provider: Santiago Lewis Primary Care Provider: Josse Escobar Other Providers: Santiago Lewis; [place],Care Other Interventions: Discharge Summary Assessment (RN) Last Done: 04/08/24 10:32 Supervising Physician Co-Signing Physician Notes Patient seen and examined independently. Discussed with above provider. Patient discharged to dementia unit at SNF. Started on vitamin D supplement I have reviewed the advanced practitioner's documentation, and I agree with, and take responsibility for the plan of care I spent a total of 10 minutes coordinating, documenting, and providing care for this patient excluding time spent in the performance of separately billed services. All of the aforementioned completed while collaborating with the assigned advanced practitioner for a full treatment plan
== END 2024-04-08 13:39 | DRG 57 ==
LOC: ED 13:28 → SUATTDRO 14:35 → 3E 14:35 → INTOOBSV 14:35 → 3E 16:46